=== PATIENT | female | born 1935 | race Caucasian/White ===

== ENCOUNTER 2019-05-07 00:21 | Day surgery (SDC) | payer MEDICARE, OTHER, SELFPAY ==
[2019-04-23 09:57] VITALS: BMI 22.6
--- NOTE | 2019-05-06 10:05 | WPDANESEPP ---
Anes - Eval Pre Procedure Procedure: Operation Date: 05/07/19 08:00 Proposed Procedures p Cystoscopy, Bladder Biopsy, Steroid Injection - Hector Clarisse Suarez MD Date/Time: 05/06/19 10:05 Pre Op Diagnosis: Hunner's Ulcer Patient Data Age: 84 Gender: F Height: 1.68 m Weight: 63.63 kg Allergies Allergy/AdvReac Type Severity Reaction Status Date / Time codeine Allergy Intermediate STOMACH Verified 04/17/18 14:28 CRAMPING,NAUSEA AND VOMITING tramadol Allergy Intermediate Nausea and Verified 04/17/18 14:28 Vomiting Sulfa (Sulfonamide AdvReac Mild STOMACH Verified 04/17/18 14:28 Antibiotics) CRAMPS Home Medications Medication Instructions Recorded Confirmed Type albuterol sulfate [ProAir HFA] 1 inh INHALATION QID PRN 04/23/19 04/23/19 History alprazolam 0.25 mg PO DAILY PRN 04/23/19 04/23/19 History aspirin 81 mg PO DAILY 04/23/19 04/23/19 History atenolol 50 mg PO DAILY 04/23/19 04/23/19 History cholecalciferol (vitamin D3) 2,000 unit PO DAILY 04/23/19 04/23/19 History conjugated estrogens [Premarin] 0.625 mg VAGINAL DAILY 04/23/19 04/23/19 History loratadine 10 mg PO DAILY 04/23/19 04/23/19 History losartan 50 mg PO DAILY 04/23/19 04/23/19 History multivitamin 1 cap PO DAILY 04/23/19 04/23/19 History olopatadine [Patanol] 1 drp OPHTHALMIC (EYE) BID 04/23/19 04/23/19 History tiotropium bromide [Spiriva with 1 cap INHALATION DAILY 04/23/19 04/23/19 History HandiHaler] zoledronic owes-raiygvrq-kqmut 5 mg IV ONCE 04/23/19 04/23/19 History [Reclast] Patient hx anesthesia problems: none Family hx anesthesia problems: none PMFSH Past Medical History Medical History Anxiety Asthma daily inhaler use HTN (hypertension) Osteoarthritis Surgical History Surgical History History of appendectomy History of carotid endarterectomy right carotid endarterectomy History of total hip arthroplasty right total hip arthroplasty Exam Day of Procedure 05/06/19 10:05
[2019-05-07 07:00] VITALS: BP 184/66; PULSE 58; RESP 18; TEMP 36.7; O2SAT 97
[2019-05-07] MEDS: LACTATED RINGERS 1,000 ML 30 ML IV CONT (07:00)
--- NOTE | 2019-05-07 07:18 | WPDHPUPDATE1 ---
History and Physical Update Update Date/Time: 05/07/19 07:18 History and Physical has been reviewed, including an updated exam of the patient. There are NO changes in the patient's condition. Risks, benefits, and alternatives have been discussed and questions answered. Patient agrees to proceed with procedure.
--- NOTE | 2019-05-07 07:19 | WPDHPUPDATE1 ---
History and Physical Update Update Date/Time: 05/07/19 07:19 History and Physical has been reviewed, including an updated exam of the patient. There are NO changes in the patient's condition. Risks, benefits, and alternatives have been discussed and questions answered. Patient agrees to proceed with procedure. cysto, bladder bx, steroid injection
[2019-05-07 07:32] VITALS: BP 152/76; PULSE 58; O2SAT 98
--- NOTE | 2019-05-07 07:40 | P.PNAN_ITS ---
Anes - Initial Pre Proc Eval Procedure: Operation Date: 05/07/19 08:00 Proposed Procedures p Cystoscopy, Bladder Biopsy, Steroid Injection - Hector Suarez MD Date/Time: 05/07/19 07:40 Surgeon: Hector Suarez MD Pre Op Diagnosis: Hunner's Ulcer Patient Data Age: 84 Gender: F Height: 5 ft 6 in Weight: 62.5 kg Last Vital Signs Temp 98.0 F 05/07/19 07:00 Pulse 58 L 05/07/19 07:32 Resp 18 05/07/19 07:00 BP 152/76 H 05/07/19 07:32 Pulse Ox 98 05/07/19 07:32 Allergies Allergy/AdvReac Type Severity Reaction Status Date / Time codeine Allergy Intermediate STOMACH Verified 05/07/19 07:11 CRAMPING,NAUSEA AND VOMITING tramadol Allergy Intermediate Nausea and Verified 05/07/19 07:11 Vomiting Sulfa (Sulfonamide AdvReac Mild STOMACH Verified 05/07/19 07:11 Antibiotics) CRAMPS Home Medications Medication Instructions Recorded Confirmed Type Premarin 0.625 mg VAGINAL DAILY 04/23/19 05/07/19 History Spiriva with HandiHaler 1 cap INHALATION DAILY 04/23/19 05/07/19 History albuterol sulfate [ProAir HFA] 1 inh INHALATION QID PRN 04/23/19 05/07/19 History alprazolam 0.25 mg PO DAILY PRN 04/23/19 05/07/19 History aspirin 81 mg PO DAILY 04/23/19 05/07/19 History atenolol 50 mg PO DAILY 04/23/19 05/07/19 History cholecalciferol (vitamin D3) 2,000 unit PO DAILY 04/23/19 05/07/19 History loratadine 10 mg PO DAILY 04/23/19 05/07/19 History losartan 50 mg PO DAILY 04/23/19 05/07/19 History multivitamin 1 cap PO DAILY 04/23/19 05/07/19 History olopatadine [Patanol] 1 drp OPHTHALMIC (EYE) BID 04/23/19 05/07/19 History zoledronic rcjf-yxvokbuc-yzuth 5 mg IV ONCE 04/23/19 05/07/19 History [Reclast] tramadol 50 mg PO Q6H PRN #10 tablet 05/07/19 Rx Patient hx anesthesia problems: none Family hx anesthesia problems: none PMFSH Past Medical History Medical History Anxiety Asthma daily inhaler use HTN (hypertension) Osteoarthritis Surgical History Surgical History History of appendectomy History of carotid endarterectomy right carotid endarterectomy History of total hip arthroplasty right total hip arthroplasty Anes - Eval Final PreProcedure Day of Procedure 05/07/19 07:40 Patient weight: normal Heart: regular rate and rhythm Lungs: clear to auscultation Airway: Mallampati scale class II Neurological: alert and oriented Last oral intake: >/= 8 hours ASA classification: III Emergent: no Anesthetic plan: proceed Anesthesia type and monitoring: general LMA and standard monitoring Informed Consent: The patient's anesthetic plan and its attendant risks and b enefits were discussed with the patient/family/POA. Questions were solicited and answers provided to the satisfaction of the patient/family/POA.
[2019-05-07] MEDS: ceFAZolin 2 GM/D5W 50 ML 2 GM/50 ML BAG IVPB (08:06)
[2019-05-07] MEDS: LIDOCAINE HCL 2% GEL UROJET 10 ML PKG MUCOUS MEM (08:18)
[2019-05-07] MEDS: TRIAMCINOLONE ACET INJ 40 MG/ML VIAL 200 MG IM (08:19)
[2019-05-07 08:35] VITALS: BP 113/49; PULSE 58; RESP 12; O2SAT 92
[2019-05-07 09:05] VITALS: BP 152/68; PULSE 52; RESP 12; O2SAT 95
[2019-05-07 09:25] VITALS: BP 165/66; PULSE 51; RESP 12; O2SAT 95
--- NOTE | 2019-05-07 09:44 | PM.PROC ---
Procedure Note - Detailed Date of procedure: 05/07/19 Pre-op diagnosis: Hunner's Ulcer Hunner's ulcer Post-op diagnosis: same Procedure performed: Cystoscopy with bladder biopsy and injection of steroid Description of procedure: After anesthesia was induced the patient was correctly identified and informed consent was obtained. They are placed in the dorsal lithotomy position. There prepped and draped in a sterile fashion. A time-out performed. I performed cystoscopy. There were areas of Hunner's ulceration inside the bladder. This was biopsied in generously fulgurated. I then injected Kenalog at a dose of 40 milligrams/mL. I injected 5 cc total. There was minimal bleeding from the injection sites. The bladder was examined under low insufflation pressures and there was no active bleeding. The bladder was drained. The awakened and transferred to the PACU in stable condition. Implants: None Anesthesia: MAC Surgeon: Hector Suarez MD Drains: No Packing: No Pathology: yes (Bladder biopsy) Complications: No immediate complications Condition: stable Disposition: PACU
== END 2019-05-07 09:32 | disposition home or self-care (01) ==
PROVIDERS: Visit Provider Urology
PROC: 0TBB8ZX Excision of Bladder, Via Natural or Artificial Opening Endoscopic, Diagnostic (ICD-10-PCS; CPT 52204; principal; 2019-05-07 08:00)
DX: N30.10 Interstitial cystitis (chronic) without hematuria (principal); J45.909 Unspecified asthma, uncomplicated; I10 Essential (primary) hypertension; F41.9 Anxiety disorder, unspecified; M19.90 Unspecified osteoarthritis, unspecified site; Z79.82 Long term (current) use of aspirin
CPT/HCPCS: 52204; 52283; 88305; A9270; J0690; J2704; J3010; J3301; J7120

== ENCOUNTER 2020-12-17 08:50 | Outpatient (CLI) | payer MEDICARE, OTHER, SELFPAY ==
--- NOTE | ~2020-12-17 | CT_ITS ---
EXAMINATION: CT brain wo con EXAM DATE: 12/17/2020 10:02 INDICATION: Confusion, disorientation. TECHNIQUE: Spiral CT of the head was performed without contrast. Axial, coronal and sagittal images were reviewed. The dose-length product (DLP) for this examination was 605.33 mGy-cm. The exposure w as tailored according to patient size, and iterative reconstruction (ASIR) was used as additional dos e reduction technique. There is no prior study for comparison. FINDINGS: There is no acute intraparenchymal hemorrhage. No evidence of intraparenchymal brain mass lesion. No evidence of acute infarction. Please note that initial head CT has limited sensitivity f or small or acute infarctions. There is moderate periventricular and subcortical hypodensity, nonspec ific but probably related to small vessel ischemic disease. There is moderate to severe prominence of the sulci and ventricles related to cerebral atrophy. 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 There are no extra-axial collections. There is no mass effect or midline shift. The orbits a re unremarkable. Soft tissue is unremarkable. The visualized sinuses and mastoid air cells are well aerated. IMPRESSION: 1. No acute intracranial findings. 2. Chronic age related findings. Reviewed, dictated and finalized at location B.
== END 2020-12-17 08:51 | disposition home or self-care (01) ==
PROVIDERS: PCP Family Medicine; Visit Provider Family Medicine
DX: R41.0 Disorientation, unspecified (principal)
CPT/HCPCS: 70450

== ENCOUNTER 2021-05-01 12:34 | Inpatient (IN) | payer MEDICARE, OTHER, SELFPAY ==
[2021-05-01 12:36] VITALS: BP 106/64; PULSE 91; RESP 16; TEMP 36.7; O2SAT 95
[2021-05-01 15:56] LABS: Basophils Percent Auto 0.5 % (0.2-1.2); Eosinophils Absolute Auto 0.1 K/mm3 (0-0.3); Eosinophils Percent Auto 1.2 % (0-4.4); Hematocrit 41.6 % (37.0-47.0); Hemoglobin 13.4 g/dL (12.0-15.0); Immature Granulocyte Absolute 0.02 K/mm3 (0.00-0.031); Immature Granulocyte Percent A 0.3 % (0-0.5); Lymphocytes Absolute Auto 1.84 K/mm3 (0.9-3.2); Lymphocytes Percent Auto 27.9 % (18.3-44.2); Mean Corpuscular HGB Conc 32.2 g/dl (32-36); Mean Corpuscular Hemoglobin 28.9 pg (26-34); Mean Corpuscular Volume 89.7 fl (80-100); Mean Platelet Volume 10.2 fl (7.4-10.4); Monocytes Absolute Auto 0.5 K/mm3 (0.1-0.6); Monocytes Percent Auto 8.2 % (2.6-8.5); Neutrophils Absolute Auto 4.1 K/mm3 (1.3-6.7); Neutrophils Percent Auto 61.9 % (45.5-73.1); Platelet Count Result 227 k/mm3 (150-375); Red Blood Count 4.64 M/mm3 (4.2-5.4); Red Cell Distribution Width 13.6 % (11.5-14.5); White Blood Count 6.6 K/mm3 (4.5-10.0)
[2021-05-01 16:05] LABS: Add Urine Microscopic? YES; Appearance Urine Clear (Clear); Bilirubin Urine Negative (Negative); Color Urine Yellow (Yellow); Glucose Urine UA Negative (Negative); Ketones Urine Negative (Negative); Leukocyte Esterase Ur 3+ LEU/UL (Negative); Nitrate Urine Negative (Negative); Protein Urine 1+ mg/dL (Negative); Specific Grav Ur 1.012 (1.001-1.035); Squamous Epithelial Cell Urine Rare /hpf (Few); Urobilinogen Urine Negative mg/dL (<2.0); WBC Urine >75 /hpf
[2021-05-01 16:06] LABS: Blood Urine Negative (Negative)
[2021-05-01 16:07] LABS: Alanine Aminotransferase 17 U/L (4-35); Albumin Level 3.4 g/dL (3.5-5.1); Alkaline Phosphatase 82 U/L (38-126); Anion Gap 5 mmol/L (8-16); Aspartate Amino Transferase 31 U/L (14-36); Bilirubin,Total 0.5 mg/dL (0.2-1.3); Blood Urea Nitrogen 16 mg/dL (7-17); Calcium 10.2 mg/dL (8.4-10.2); Carbon Dioxide 31 mmol/L (22-30); Chloride 100 mmol/L (98-107); Estimated Glomerular Filt Rate 59; Glucose 110 mg/dL (65-110); Potassium 3.8 mmol/L (3.4-5.0); Sodium 136 mmol/L (137-145)
--- NOTE | 2021-05-01 16:48 | ED.FEMALEGU ---
HPI - Female Genitourinary General Chief complaint: Urogenital-Female <Genesis Morales PA-C - Last Filed: 05/01/21 17:31> Stated complaint: uti <Genesis Morales PA-C - Last Filed: 05/01/21 17:31> Time Seen by Provider: 05/01/21 15:32 <Genesis Morales PA-C - Last Filed: 05/01/21 17:31> Source: patient <NICOLAS Thomas Last Filed: 05/01/21 17:31> Mode of arrival: EMS <NICOLAS Thomas Last Filed: 05/01/21 17:31> Limitations: no limitations <NCIOLAS Thomas Last Filed: 05/01/21 17:31> History of Present Illness HPI Narrative: This is a 86 year old female that presents to the ER for UTI. Had UA performed at nursing facility which showed a UTI that was resistant to all oral antibiotics. Sent to the ER for IV antibiotics. She has no complaints currently. Denies fever, flank pain, vomiting, or hematuria. <Genesis Morales PA-C - Last Filed: 05/01/21 17:31> Related Data Home medications: Home Medications Medication Instructions Recorded Confirmed Spiriva with HandiHaler 1 cap INHALATION DAILY 04/23/19 05/07/19 albuterol sulfate [ProAir HFA] 1 inh INHALATION QID PRN 04/23/19 05/07/19 aspirin 81 mg PO DAILY 04/23/19 05/07/19 cholecalciferol (vitamin D3) 2,000 unit PO DAILY 04/23/19 05/07/19 multivitamin 1 cap PO DAILY 04/23/19 05/07/19 olopatadine [Patanol] 1 drp OPHTHALMIC (EYE) BID 04/23/19 05/07/19 zoledronic jhws-bkaeqjyv-exzoc 5 mg IV ONCE 04/23/19 05/07/19 [Reclast] atorvastatin 40 mg PO HS 05/01/21 bisacodyl [Gentle Laxative 5 mg PO HS 05/01/21 (bisacodyl)] clopidogrel 75 mg PO DAILY 05/01/21 ferrous sulfate 143 mg PO TID 05/01/21 folic acid 1 mg PO DAILY 05/01/21 magnesium oxide 400 mg PO DAILY 05/01/21 nitrofurantoin 50 mg PO DAILY 05/01/21 05/01/21 sertraline 25 mg PO DAILY 05/01/21 <Genesis Morales PA-C - Last Filed: 05/01/21 17:31> Allergies/Adverse reactions: Allergies Allergy/AdvReac Type Severity Reaction Status Date / Time codeine Allergy Intermediate STOMACH Verified 05/07/19 07:11 CRAMPING,NAUSEA AND VOMITING tramadol Allergy Intermediate Nausea and Verified 05/07/19 07:11 Vomiting ciprofloxacin Allergy Unknown Verified 05/01/21 16:22 meloxicam Allergy Unknown Verified 05/01/21 16:22 Sulfa (Sulfonamide AdvReac Mild STOMACH Verified 05/07/19 07:11 Antibiotics) CRAMPS <Genesis Morales PA-C - Last Filed: 05/01/21 17:31> Review of Systems Review of Systems: CONSTITUTIONAL: Denies fever GASTROINTESTINAL: Denies abdominal pain, nausea, vomiting GENITOURINARY: Denies dysuria or hematuria. <Genesis Morales PA-C - Last Filed: 05/01/21 17:31> All systems reviewed & are unremarkable except as noted in HPI and below <Genesis Morales PA-C - Last Filed: 05/01/21 17:31> [facility] Past Medical History Medical History: Medical History (Updated 05/01/21 @ 17:23 by Genesis Morales PA-C) Anxiety Asthma daily inhaler use HTN (hypertension) Osteoarthritis <Genesis Morales PA-C - Last Filed: 05/01/21 17:31> Surgical History Surgical History: Surgical History History of appendectomy History of carotid endarterectomy right carotid endarterectomy History of total hip arthroplasty right total hip arthroplasty <Genesis Morales PA-C - Last Filed: 05/01/21 17:31> Social History Social History: Social History (Updated 05/01/21 @ 16:53 by Genesis Morales PA-C) Smoking status: Never smoker <Genesis Morales PA-C - Last Filed: 05/01/21 17:31> Exam Narrative: GENERAL: Well-appearing, well-nourished, and in no acute distress. HEAD: Normocephalic, atraumatic. EYES: EOMI. CHEST: Clear to auscultation. No respiratory distress. No wheezes rales or rhonchi HEART: Regular rate and rhythm. No murmur heard. Normal peripheral pulses. ABDOMEN: Soft, nontender, nondistended, normal active bowel sounds. No CVA tenderness
--- NOTE | 2021-05-01 17:31 | PC.NURSE ---
community living coach ordered room tray @ [phone]
[2021-05-01 17:37] VITALS: BP 150/78; PULSE 74; RESP 20; O2SAT 94
[2021-05-01 18:21] VITALS: BP 152/61; PULSE 75; RESP 16; O2SAT 96
--- NOTE | 2021-05-01 19:29 | PM.IMHP ---
H&P: HPI History of Present Illness Date/Time: 05/01/21 19:29 this is an 86-year-old female patient who came from the nursing facility which showed a urinary tract infection of E coli that was resistant to all oral antibiotics. The patient was sent to the emergency room for IV antibiotics. The urine culture and sensitivity was very difficult to read however it looks like the that she Sade is sensitive to vancomycin. Patient tonight any fever chills or flank pain. The patient currently has a depends on its stated that she feels that she has had an accident in her depends. She feels that she is not able to control her urine. The patient also tells me that she has been wheezing and that she was getting nebulizer treatments and her nebulizer machine broke and she is still coughing and wheezing Sodium is 136. Urine in his positive for UTI. The patient was started on vancomycin. The patient is being admitted for observation status and then was changed to inpatient status on the deep surface of 05/01/2021. Chief Complaint: Urinary tract infection Review of Systems Review of Systems: The patient is hard of hearing and was a poor historian. ROS unobtainable: Yes unobtainable due to mental status PMFSH Past Medical History Medical History (Updated 05/01/21 @ 23:47 by Haydee Montero NP) Anxiety Asthma daily inhaler use HTN (hypertension) Hyperlipidemia Osteoarthritis Surgical History Surgical History History of appendectomy History of carotid endarterectomy right carotid endarterectomy History of total hip arthroplasty right total hip arthroplasty Family History Family History Father Emphysema lung Social History Social History (Updated 05/01/21 @ 23:40 by Haydee Montero NP) Social History: She is from [facility]. she has 3 chidren. she is . 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 lifelong non smoker . she does not use any alcohol marijuana or illicit drugs. code status full code Smoking status: Never smoker Alcohol intake: never Substance use: never Substance use type: does not use Spiritual care concerns: No Meds Home Medications and Allergies Home Medications Medication Instructions Recorded Confirmed Type Spiriva with HandiHaler 1 cap INHALATION DAILY 04/23/19 05/07/19 History albuterol sulfate [ProAir HFA] 1 inh INHALATION QID PRN 04/23/19 05/07/19 History aspirin 81 mg PO DAILY 04/23/19 05/07/19 History cholecalciferol (vitamin D3) 2,000 unit PO DAILY 04/23/19 05/07/19 History multivitamin 1 cap PO DAILY 04/23/19 05/07/19 History olopatadine [Patanol] 1 drp OPHTHALMIC (EYE) BID 04/23/19 05/07/19 History atorvastatin 40 mg PO HS 05/01/21 History bisacodyl [Gentle Laxative 5 mg PO HS 05/01/21 History (bisacodyl)] clopidogrel 75 mg PO DAILY 05/01/21 History ferrous sulfate 143 mg PO TID 05/01/21 History folic acid 1 mg PO DAILY 05/01/21 History magnesium oxide 400 mg PO DAILY 05/01/21 History nitrofurantoin 50 mg PO DAILY 05/01/21 05/01/21 History sertraline 25 mg PO DAILY 05/01/21 History Allergies Allergy/AdvReac Type Severity Reaction Status Date / Time codeine Allergy Intermediate STOMACH Verified 05/07/19 07:11 CRAMPING,NAUSEA AND VOMITING tramadol Allergy Intermediate Nausea and Verified 05/07/19 07:11 Vomiting ciprofloxacin Allergy Unknown Verified 05/01/21 16:22 meloxicam Allergy Unknown Verified 05/01/21 16:22 Sulfa (Sulfonamide AdvReac Mild STOMACH Verified 05/07/19 07:11 Antibiotics) CRAMPS Vital Signs Vital Signs - 24 hr 05/01/21 12:36 05/01/21 17:37 05/01/21 18:21 Temperature 36.7 C Pulse Rate 91 74 75 Respiratory Rate 16 20 16 Blood Pressure 106/64 150/78 H 152/61 H Pulse Oximetry 95 94 96 Exam Const: General: cooperati
[2021-05-01 21:31] VITALS: BP 135/102; PULSE 72; RESP 18; O2SAT 97
--- NOTE | 2021-05-01 23:00 | ADMGEN ---
This patient, Gracia Goodson, was admitted to 2 Medical Room 241-01. Patient/family oriented to hospital policies and general routines including ID bracelet, bed and alarms, visiting hours, pain management, procedures, bathroom and other care routines, personal items, smoking policy, room service/diet, and visiting hours. Information on how to activate the Rapid Response Team has been discussed. Patient/Family are encouraged to report perceived risks to care and to ask questions if they do not understand what they are told or what they should do.
[2021-05-01 23:27] VITALS: BP 123/61; PULSE 71; RESP 20; TEMP 35.7; O2SAT 97; BMI 15.7
[2021-05-02] MEDS: ATORVASTATIN 40 MG TABLET PO ×2 (01:11→20:01)
[2021-05-02 03:28] VITALS: BP 137/58; PULSE 80; RESP 18; TEMP 36; O2SAT 97
[2021-05-02 05:46] LABS: Basophils Percent Auto 0.4 % (0.2-1.2); Eosinophils Absolute Auto 0.1 K/mm3 (0-0.3); Eosinophils Percent Auto 1.6 % (0-4.4); Hematocrit 39.5 % (37.0-47.0); Hemoglobin 12.6 g/dL (12.0-15.0); Immature Granulocyte Absolute 0.02 K/mm3 (0.00-0.031); Immature Granulocyte Percent A 0.3 % (0-0.5); Lymphocytes Absolute Auto 1.73 K/mm3 (0.9-3.2); Lymphocytes Percent Auto 24.5 % (18.3-44.2); Mean Corpuscular HGB Conc 31.9 g/dl (32-36); Mean Corpuscular Hemoglobin 28.3 pg (26-34); Mean Corpuscular Volume 88.8 fl (80-100); Mean Platelet Volume 10.2 fl (7.4-10.4); Monocytes Absolute Auto 0.7 K/mm3 (0.1-0.6); Monocytes Percent Auto 9.4 % (2.6-8.5); Neutrophils Absolute Auto 4.5 K/mm3 (1.3-6.7); Neutrophils Percent Auto 63.8 % (45.5-73.1); Platelet Count Result 207 k/mm3 (150-375); Red Blood Count 4.45 M/mm3 (4.2-5.4); Red Cell Distribution Width 13.3 % (11.5-14.5); White Blood Count 7.1 K/mm3 (4.5-10.0)
[2021-05-02 05:54] LABS: Lactic Acid Reflex 0.5 mmol/L (0.7-2.1)
[2021-05-02 05:59] LABS: CRP 0.7 mg/dL (<1.0); Lactate Dehydrogenase 347 U/L (313-618); Lipase 42 U/L (23-300); Magnesium 1.9 mg/dL (1.6-2.3)
[2021-05-02] MEDS: MAGNESIUM OXIDE 400 MG TABLET PO (08:43)
[2021-05-02] MEDS: FOLIC ACID 1 MG TABLET PO (08:43)
[2021-05-02] MEDS: FERROUS SULFATE DRIED 142 MG TABCR 45 MG PO (08:43)
[2021-05-02] MEDS: CHOLECALCIFEROL 1,000 UNITS TABLET 2000 UNITS PO (08:43)
[2021-05-02] MEDS: NITROFURANTOIN MACROCRYSTALS 50 MG CAP PO (08:43)
[2021-05-02] MEDS: SERTRALINE HCL 25 MG TABLET PO (08:43)
[2021-05-02] MEDS: ASPIRIN 81 MG ENTERIC TABLET PO (08:43)
[2021-05-02] MEDS: MULTIVITAMINS THERAPEUTIC TAB (*BKC) 1 TABLET PO (08:43)
[2021-05-02] MEDS: OLOPATADINE 0.1% OPHTH SOLN 5 ML BTL 1 DROP EACH EYE ×2 (08:45→16:54)
[2021-05-02] MEDS: CLOPIDOGREL BISULFATE 75 MG TABLET PO (08:45)
--- NOTE | 2021-05-02 10:18 | PM.IMPN ---
Progress Note: A&P Assessment and Plan (1) Urinary tract infection: Qualifiers: Hematuria presence: without hematuria Urinary tract infection type: acute cystitis Qualified Code(s): N30.00 - Acute cystitis without hematuria Code(s): N39.0 - Urinary tract infection, site not specified Status: Acute Assessment and Plan: Ecoli + Follow UC and BC Continue with vanc for now (2) HTN (hypertension): Code(s): I10 - Essential (primary) hypertension Status: Chronic Assessment and Plan: Continue home medications Monitor (3) Asthma: Code(s): J45.909 - Unspecified asthma, uncomplicated Status: Chronic Assessment and Plan: No acute exacerbation Continue with home inhalers (4) Anxiety: Code(s): F41.9 - Anxiety disorder, unspecified Status: Chronic Assessment and Plan: Continue home medications (5) Hyperlipidemia: Code(s): E78.5 - Hyperlipidemia, unspecified Status: Chronic Assessment and Plan: Continue atorvastatin Subjective Date/time seen: 05/02/21 10:18 Interval history: Pt seen and evaluated; labs, diagnostic results reviewed Review of Systems Review of Systems: All systems reviewed & are unremarkable except as noted in HPI and below Exam Const: General: no acute distress, alert and awake Orientation/consciousness: patient oriented x3 HENMT: Head: normocephalic and atraumatic Ears: hearing grossly normal bilaterally and external ears normal Face and sinus: face symmetric Mouth: Yes Normal oral and palatal mucosa present Eyes: EOM: EOMs intact bilaterally Neck: Neck: full ROM, trachea midline and no JVD Resp: Effort & Inspection: normal respiratory effort Auscultation: clear to auscultation bilaterally Cardio: Jugular venous distension: no JVD Rate: regular rate Rhythm: regular rhythm Heart sounds: S1 normal heart sound present and S2 normal heart sound present GI: Inspection: normal to inspection GI Palp: Yes Soft to palpation Percussion: Yes normal to percussion Auscultation: normal bowel sounds : General: Yes no CVA tenderness Skin: General skin exam: normal color Rashes: no rashes Neuro: General: patient oriented x3 and no focal motor deficits Cranial nerves: Yes Equal, round and reactive pupils present Speech: normal speech Extrem: General: full ROM and no clubbing, cyanosis or edema Psych: Appearance: grossly normal Affect: normal affect Judgement: Good judgement present (Psych) Objective Data Vital Signs Vital Signs: Vital Signs - 24 hr 05/01/21 12:36 05/01/21 17:37 05/01/21 18:21 Temperature 36.7 C Pulse Rate 91 74 75 Respiratory Rate 16 20 16 Blood Pressure 106/64 150/78 H 152/61 H Pulse Oximetry 95 94 96 05/01/21 21:31 05/01/21 23:27 05/02/21 03:28 Temperature 35.7 C L 36.0 C L Pulse Rate 72 71 80 Respiratory Rate 18 20 18 Blood Pressure 135/102 H 123/61 137/58 L Pulse Oximetry 97 97 97 Intake/Output Intake/Output: Intake & Output 04/29/21 04/30/21 05/01/21 05/02/21 23:59 23:59 23:59 23:59 Intake Total 250 250 Balance 250 250 Meds/Results Medications: Active Medications Generic Name Dose Route Start Last Admin Trade Name Freq PRN Reason Stop Dose Admin Albuterol 2 puff 05/01/21 23:29 Albuterol Sulfate (*Sp) Aerosol 1 Puff INHALATION Q6HRT PRN Shortness Of Breath Aspirin 81 mg 05/02/21 09:00 05/02/21 08:43 Aspirin 81 Mg Enteric Tablet PO 81 mg DAILY FRANCK Administration Atorvastatin Calcium 40 mg 05/02/21 00:20 05/02/21 01:11 Atorvastatin 40 Mg Tablet PO 40 mg HS FRANCK Administration Bisacodyl 5 mg 05/01/21 23:49 Bisacodyl 5 Mg Tablet Ec PO HS PRN Constipation Clopidogrel Bisulfate 75 mg 05/02/21 09:00 05/02/21 08:45 Clopidogrel Bisulfate 75 Mg Tablet PO 75 mg DAILY FRANCK Administration Ferrous Sulfate 45 mg 05/02/21 08:00 05/02/21 08:43 Ferrous Sulfate
[2021-05-02 14:00] VITALS: BP 137/62; PULSE 74; RESP 12; TEMP 36.4; O2SAT 95
[2021-05-02] MEDS: UMECLIDINIUM BROMIDE 62.5 MCG ELLIPTA 1 PUFF INHALATION (17:46)
[2021-05-02 19:49] VITALS: BP 129/52; PULSE 81; RESP 16; TEMP 35.9; O2SAT 95
[2021-05-03 03:16] VITALS: BP 112/61; PULSE 86; RESP 17; TEMP 36; O2SAT 93
[2021-05-03 06:04] LABS: Hematocrit 38.8 % (37.0-47.0); Hemoglobin 12.4 g/dL (12.0-15.0); Mean Corpuscular Hemoglobin 28.6 pg (26-34); Mean Corpuscular Volume 89.6 fl (80-100); Mean Platelet Volume 10.5 fl (7.4-10.4); Platelet Count Result 229 k/mm3 (150-375); Red Blood Count 4.33 M/mm3 (4.2-5.4); Red Cell Distribution Width 13.4 % (11.5-14.5); White Blood Count 6.4 K/mm3 (4.5-10.0)
[2021-05-03 06:23] LABS: Anion Gap 0 mmol/L (8-16); Blood Urea Nitrogen 12 mg/dL (7-17); Calcium 9.3 mg/dL (8.4-10.2); Carbon Dioxide 29 mmol/L (22-30); Chloride 106 mmol/L (98-107); Estimated CRCL calculation 31 ml/min; Estimated Glomerular Filt Rate > 60; Glucose 79 mg/dL (65-110); Potassium 3.9 mmol/L (3.4-5.0); Sodium 135 mmol/L (137-145)
[2021-05-03] MEDS: SERTRALINE HCL 25 MG TABLET PO (08:58)
[2021-05-03] MEDS: CHOLECALCIFEROL 1,000 UNITS TABLET 2000 UNITS PO (08:58)
[2021-05-03] MEDS: MULTIVITAMINS THERAPEUTIC TAB (*BKC) 1 TABLET PO (08:58)
[2021-05-03] MEDS: MAGNESIUM OXIDE 400 MG TABLET PO (08:58)
[2021-05-03] MEDS: FERROUS SULFATE DRIED 142 MG TABCR 45 MG PO (08:58)
[2021-05-03] MEDS: CLOPIDOGREL BISULFATE 75 MG TABLET PO (08:58)
[2021-05-03] MEDS: ASPIRIN 81 MG ENTERIC TABLET PO (08:58)
[2021-05-03] MEDS: OLOPATADINE 0.1% OPHTH SOLN 5 ML BTL 1 DROP EACH EYE ×2 (08:59→17:24)
[2021-05-03] MEDS: FOLIC ACID 1 MG TABLET PO (08:59)
[2021-05-03] MEDS: UMECLIDINIUM BROMIDE 62.5 MCG ELLIPTA 1 PUFF INHALATION (10:00)
--- NOTE | 2021-05-03 11:30 | PM.IMPN ---
Progress Note: A&P Assessment and Plan (1) Urinary tract infection: Qualifiers: Hematuria presence: without hematuria Urinary tract infection type: acute cystitis Qualified Code(s): N30.00 - Acute cystitis without hematuria Code(s): N39.0 - Urinary tract infection, site not specified Status: Acute Assessment and Plan: UC-->Ecoli + ESBL BC NGTD D/c vanc Ertapenem (2) HTN (hypertension): Code(s): I10 - Essential (primary) hypertension Status: Chronic Assessment and Plan: Stable Continue home medications Monitor (3) Asthma: Code(s): J45.909 - Unspecified asthma, uncomplicated Status: Chronic Assessment and Plan: No acute exacerbation Continue with home inhalers (4) Anxiety: Code(s): F41.9 - Anxiety disorder, unspecified Status: Chronic Assessment and Plan: Continue home medications (5) Hyperlipidemia: Code(s): E78.5 - Hyperlipidemia, unspecified Status: Chronic Assessment and Plan: Continue atorvastatin Subjective Date/time seen: 05/03/21 11:30 Interval history: 05/02 Pt seen and evaluated; labs, diagnostic results reviewed 05/03 Pt seen and evaluated; no acute events overnight; UC grew Ecoli ESBL Review of Systems Review of Systems: All systems reviewed & are unremarkable except as noted in HPI and below Exam Const: General: no acute distress, alert and awake Orientation/consciousness: patient oriented x3 HENMT: Head: normocephalic and atraumatic Ears: hearing grossly normal bilaterally and external ears normal Face and sinus: face symmetric Mouth: Yes Normal oral and palatal mucosa present Eyes: EOM: EOMs intact bilaterally Neck: Neck: full ROM, trachea midline and no JVD Chest: Chest palpation & inspection: normal inspection of the chest Resp: Effort & Inspection: normal respiratory effort Auscultation: clear to auscultation bilaterally Cardio: Jugular venous distension: no JVD Rate: regular rate Rhythm: regular rhythm Heart sounds: S1 normal heart sound present and S2 normal heart sound present GI: Inspection: normal to inspection Auscultation: normal bowel sounds : General: Yes no CVA tenderness Back/Spine/Pelvis: Back: no CVA tenderness Skin: General skin exam: normal color Rashes: no rashes Neuro: General: patient oriented x3 and no focal motor deficits Speech: normal speech Extrem: General: full ROM and no clubbing, cyanosis or edema Psych: Appearance: grossly normal Affect: normal affect Judgement: Good judgement present (Psych) Objective Data Vital Signs Vital Signs: Vital Signs - 24 hr 05/02/21 14:00 05/02/21 19:49 05/03/21 03:16 Temperature 36.4 C 35.9 C L 36.0 C L Pulse Rate 74 81 86 Respiratory Rate 12 16 17 Blood Pressure 137/62 129/52 L 112/61 Pulse Oximetry 95 95 93 Intake/Output Intake/Output: Intake & Output 04/30/21 05/01/21 05/02/21 05/03/21 23:59 23:59 23:59 23:59 Intake Total 250 510 540 Output Total 100 Balance 250 410 540 Meds/Results Medications: Active Medications Generic Name Dose Route Start Last Admin Trade Name Freq PRN Reason Stop Dose Admin Albuterol 2 puff 05/01/21 23:29 Albuterol Sulfate (*Sp) Aerosol 1 Puff INHALATION Q6HRT PRN Shortness Of Breath Aspirin 81 mg 05/02/21 09:00 05/03/21 08:58 Aspirin 81 Mg Enteric Tablet PO 81 mg DAILY FRANCK Administration Atorvastatin Calcium 40 mg 05/02/21 00:20 05/02/21 20:01 Atorvastatin 40 Mg Tablet PO 40 mg HS FRANCK Administration Bisacodyl 5 mg 05/01/21 23:49 Bisacodyl 5 Mg Tablet Ec PO HS PRN Constipation Clopidogrel Bisulfate 75 mg 05/02/21 09:00 05/03/21 08:58 Clopidogrel Bisulfate 75 Mg Tablet PO 75 mg DAILY FRANCK Administration Ferrous Sulfate 45 mg 05/02/21 08:00 05/03/21 08:58 Ferrous Sulfate Dried 142 Mg Tabcr PO 45 mg DAILY@0800 FRANCK Administration Folic Acid 1 mg
[2021-05-03] MEDS: ERTAPENEM SODIUM 0.5 GM in SODIUM CHLORIDE 0.9% IV 50 ML IVPB (12:49)
[2021-05-03 15:01] VITALS: BP 117/66; PULSE 79; RESP 16; TEMP 36.8; O2SAT 95
[2021-05-03 19:07] VITALS: BP 118/65; PULSE 81; RESP 17; TEMP 36.6; O2SAT 94
[2021-05-03] MEDS: ATORVASTATIN 40 MG TABLET PO (20:37)
[2021-05-04 03:27] VITALS: BP 132/76; PULSE 87; RESP 18; TEMP 37.1; O2SAT 93
[2021-05-04 06:53] LABS: Hematocrit 37.8 % (37.0-47.0); Hemoglobin 12.2 g/dL (12.0-15.0); Mean Corpuscular HGB Conc 32.3 g/dl (32-36); Mean Corpuscular Hemoglobin 29.1 pg (26-34); Mean Corpuscular Volume 90.2 fl (80-100); Mean Platelet Volume 10.3 fl (7.4-10.4); Platelet Count Result 223 k/mm3 (150-375); Red Blood Count 4.19 M/mm3 (4.2-5.4); Red Cell Distribution Width 13.6 % (11.5-14.5); White Blood Count 6.6 K/mm3 (4.5-10.0)
[2021-05-04 07:12] LABS: Anion Gap 2 mmol/L (8-16); Blood Urea Nitrogen 12 mg/dL (7-17); Calcium 9.1 mg/dL (8.4-10.2); Carbon Dioxide 28 mmol/L (22-30); Chloride 105 mmol/L (98-107); Estimated CRCL calculation 27 ml/min; Estimated Glomerular Filt Rate 59; Glucose 76 mg/dL (65-110); Potassium 3.6 mmol/L (3.4-5.0); Sodium 135 mmol/L (137-145)
[2021-05-04] MEDS: CLOPIDOGREL BISULFATE 75 MG TABLET PO (08:07)
[2021-05-04] MEDS: FERROUS SULFATE DRIED 142 MG TABCR 45 MG PO (08:07)
[2021-05-04] MEDS: ASPIRIN 81 MG ENTERIC TABLET PO (08:08)
[2021-05-04] MEDS: CHOLECALCIFEROL 1,000 UNITS TABLET 2000 UNITS PO (08:08)
[2021-05-04] MEDS: FOLIC ACID 1 MG TABLET PO (08:08)
[2021-05-04] MEDS: MAGNESIUM OXIDE 400 MG TABLET PO (08:08)
[2021-05-04] MEDS: SERTRALINE HCL 25 MG TABLET PO (08:08)
[2021-05-04] MEDS: MULTIVITAMINS THERAPEUTIC TAB (*BKC) 1 TABLET PO (08:08)
[2021-05-04] MEDS: OLOPATADINE 0.1% OPHTH SOLN 5 ML BTL 1 DROP EACH EYE (08:08)
--- NOTE | 2021-05-04 09:54 | PM.IMPN ---
Progress Note: A&P Assessment and Plan (1) Urinary tract infection: Qualifiers: Hematuria presence: without hematuria Urinary tract infection type: acute cystitis Qualified Code(s): N30.00 - Acute cystitis without hematuria Code(s): N39.0 - Urinary tract infection, site not specified Status: Acute Assessment and Plan: Urine culture with growth of ESBL E. coli Patient with history of antibiotic resistant UTI Continue IV Ertapenem 1 g q24h. Dose #2 today She will require 10 days of IV antibiotic therapy. Plan for midline placement today preliminary blood cultures negative to date (2) HTN (hypertension): Code(s): I10 - Essential (primary) hypertension Status: Chronic Assessment and Plan: blood pressures reviewed and have been well controlled does not appear to be on any antihypertensive agents continue to monitor blood pressure trends (3) Asthma: Code(s): J45.909 - Unspecified asthma, uncomplicated Status: Chronic Assessment and Plan: No acute issues continue home inhalers albuterol nebs q6h prn (4) Anxiety: Code(s): F41.9 - Anxiety disorder, unspecified Status: Chronic Assessment and Plan: No acute issues. Continue sertraline Subjective Date/time seen: 05/04/21 09:54 Interval history: Date of service: 05/04/2021 Gracia Goodson is an 86-year-old female with a history of hypertension, hyperlipidemia, anxiety, and asthma who is seen in follow-up for urinary tract infection. she is feeling okay today. She does state that her stomach is rumbling and therefore she did not eat much of her breakfast. She denies nausea or vomiting. She endorses urinary incontinence and wears depends. Denies suprapubic pain, flank pain, or back pain. She is wheelchair dependent. She denies shortness of breath. she does endorse a mild, intermittent cough for which she would like to taking breathing treatment. she states that she [facility] nebs [facility] her [facility] and would like this resume. She denies fevers or chills. No dizziness or lightheadedness. Denies chest pain. Review of Systems Review of Systems: All systems reviewed & are unremarkable except as noted in HPI and below Objective Data Vital Signs Vital Signs: Vital Signs - 24 hr 05/03/21 15:01 05/03/21 19:07 05/04/21 03:27 Temperature 98.2 F 97.8 F 98.8 F Pulse Rate 79 81 87 Respiratory Rate 16 17 18 Blood Pressure 117/66 118/65 132/76 Pulse Oximetry 95 94 93 Intake/Output Intake/Output: Intake & Output 05/01/21 05/02/21 05/03/21 05/04/21 23:59 23:59 23:59 23:59 Intake Total 250 510 940 310 Output Total 100 Balance 250 410 940 310 Meds/Results Medications: Active Medications Generic Name Dose Route Start Last Admin Trade Name Freq PRN Reason Stop Dose Admin Albuterol 2 puff 05/01/21 23:29 Albuterol Sulfate (*Sp) Aerosol 1 Puff INHALATION Q6HRT PRN Shortness Of Breath Aspirin 81 mg 05/02/21 09:00 05/04/21 08:08 Aspirin 81 Mg Enteric Tablet PO 81 mg DAILY FRANCK Administration Atorvastatin Calcium 40 mg 05/02/21 00:20 05/03/21 20:37 Atorvastatin 40 Mg Tablet PO 40 mg HS FRANCK Administration Bisacodyl 5 mg 05/01/21 23:49 Bisacodyl 5 Mg Tablet Ec PO HS PRN Constipation Clopidogrel Bisulfate 75 mg 05/02/21 09:00 05/04/21 08:07 Clopidogrel Bisulfate 75 Mg Tablet PO 75 mg DAILY FRANCK Administration Ferrous Sulfate 45 mg 05/02/21 08:00 05/04/21 08:07 Ferrous Sulfate Dried 142 Mg Tabcr PO 45 mg DAILY@0800 FRANCK Administration Folic Acid 1 mg 05/02/21 09:00 05/04/21 08:08 Folic Acid 1 Mg Tablet PO 1 mg DAILY FRANCK Administration Ertapenem 0.5 gm/ Sodium 50 mls @ 100 mls/hr 05/03/21 12:00 05/03/21 13:19 Chloride IVPB Infused Q24H FRANCK Infusion Magnesium Oxide 400 mg 05/02/21 09:00 05/04/21 08:08 Magnesium Oxide 400 Mg Tablet PO
[2021-05-04 11:00] VITALS: BMI 15.7
[2021-05-04 11:17] VITALS: PULSE 90; RESP 20
[2021-05-04] MEDS: UMECLIDINIUM BROMIDE 62.5 MCG ELLIPTA 1 PUFF INHALATION (11:17)
--- NOTE | 2021-05-04 11:45 | P.CDI_ITS ---
CDI Query Clarification Request -BMI 15.7 -Nutrition Assessment completed by superintendent oil field drilling. Pt is 75% of ideal body weight, with BMI 15.7 classification is underweight. Inadequate oral intake documented and dietary supplements recommended.Ensure compact BID was ordered. -Pt is thin has been documented by provider. Please clarify if there is possibly a more definitive diagnosis for above findings: * Underweight * Malnutrition * No additional diagnosis * Other * Unable to determine
--- NOTE | 2021-05-04 11:45 | WPDCDIQUERY2 ---
CDI Query Clarification Request -BMI 15.7 -Nutrition Assessment completed by pneumatic press hand. Pt is 75% of ideal body weight, with BMI 15.7 classification is underweight. Inadequate oral intake documented and dietary supplements recommended.Ensure compact BID was ordered. -Pt is thin has been documented by provider. Please clarify if there is possibly a more definitive diagnosis for above findings: Underweight Malnutrition No additional diagnosis Other Unable to determine
[2021-05-04] MEDS: ERTAPENEM SODIUM 0.5 GM in SODIUM CHLORIDE 0.9% IV 50 ML IVPB (11:54)
[2021-05-04 13:46] VITALS: BP 135/74; PULSE 81; RESP 14; TEMP 36.3; O2SAT 93
--- NOTE | 2021-05-04 14:38 | PM.DS ---
DS: Admitting Diagnosis Discharge Date 05/04/2021 Admitting Diagnosis UTI DS: Discharge Diagnosis Discharge Diagnosis (1) Urinary tract infection: Qualifiers: Hematuria presence: without hematuria Urinary tract infection type: acute cystitis Qualified Code(s): N30.00 - Acute cystitis without hematuria Code(s): N39.0 - Urinary tract infection, site not specified Status: Acute Assessment and Plan: Urine culture with growth of 10-49k ESBL E. coli Patient with history of antibiotic resistant UTI therefore was sent to hospital for further treatment from assisted living facility Given low colony count, felt to be contaminant. Patient is asymptomatic, afebrile, no leukocytosis No further treatment required Repeat urine culture if patient were to develop symptoms of UTI (2) HTN (hypertension): Code(s): I10 - Essential (primary) hypertension Status: Chronic Assessment and Plan: Blood pressures reviewed and were well controlled does not appear to be on any antihypertensive agents (3) Asthma: Code(s): J45.909 - Unspecified asthma, uncomplicated Status: Chronic Assessment and Plan: No acute issues continue home inhalers (4) Anxiety: Code(s): F41.9 - Anxiety disorder, unspecified Status: Chronic Assessment and Plan: No acute issues. Continue sertraline (5) Positive blood culture: Code(s): R78.81 - Bacteremia Status: Acute Assessment and Plan: 1 of 2 blood cultures with growth of coag-negative Staphylococcus >48 hours after collection [place] to be contaminant No treatment required Will monitor final blood cultures DS: Summary Hospital Course Hospital Course: Date of admission: 05/01/2021 Date of discharge: 05/04/2021 Gracia Goodson is an 86-year-old female with a history of hypertension, hyperlipidemia, anxiety, and asthma who presented to the emergency department on 05/01/2021 from her [facility] care facility after a positive urine culture. She has a history of antibiotic resistant UTIs and following completion of urine culture, the [facility] practitioner instructed the patient be sent to the ED for further treatment. She was admitted to the hospitalist service for further evaluation and management. Please see above for further details. Review urine culture with low colony count felt to be consistent with contaminant. Patient was asymptomatic. No fevers or leukocytosis. No treatment felt to be required. She was at her usual state of health and was determined to no longer require inpatient care. Discussed with the patient's daughter via phone and provide updates on course of hospitalization as well as discussed discharge instructions and worrisome signs and symptoms for which to return. Patient was discharged in hemodynamically stable condition on 05/04/2021 Status at Discharge Overall status at discharge: patient is back to baseline Time Spent with Patient Time attestation: Total time spent providing and/or coordinating discharge services: 45 minutes Time spent: Greater than 30 minutes Specific discharge activities: Reviewing chart and lab results, updating family, speaking with patient's nursing facility Exam Narrative: Ms. Goodson is a thin, well-appearing 86-year-old female who is sitting up in bed. she appears comfortable and is in NARD. Neuro: awake, alert and oriented x4, speech clear, no focal neuro deficits noted HEENMT: normocephalic, atraumatic, EOMI, sclerae anicteric Neck: supple, no lymphadenopathy Respiratory: clear to auscultation bilaterally, nonlabored breathing Cardio: regular rate, regular rhythm with S1-S2 Abdomen: nondistended, normoactive bowel sounds, soft, nontender to palpation Extremities: no edema, erythema, or tenderness to palpation, DP pulses 2+ bilaterally Skin: no rashes or lesions, warm and dry Psych: appropriate mood and affect, judgment and
[2021-05-04 15:52] LABS: EDCOVIDSCREEN Negative (Negative)
== END 2021-05-04 17:21 | DRG 690 ==
LOC: ANHED 17:23 → ANH2MED 05-04 06:39 → ANH3MEDSUR 05-05 14:18
PROVIDERS: Nurse Practitioner; Nurse Practitioner Adult Health; Admitting Provider Hospitalist; Emergency Provider Emergency Medicine; PCP Nurse Practitioner Family; Visit Provider Physician Assistant
DX: N30.00 Acute cystitis without hematuria (principal); R78.81 Bacteremia; Z16.12 Extended spectrum beta lactamase (ESBL) resistance; B96.20 Unspecified Escherichia coli [E. coli] as the cause of diseases classified elsewhere; B95.7 Other staphylococcus as the cause of diseases classified elsewhere; Z20.822 Contact with and (suspected) exposure to COVID-19; I10 Essential (primary) hypertension; J45.909 Unspecified asthma, uncomplicated; F41.9 Anxiety disorder, unspecified; E78.5 Hyperlipidemia, unspecified; M19.90 Unspecified osteoarthritis, unspecified site; Z96.641 Presence of right artificial hip joint; Z79.82 Long term (current) use of aspirin; Z79.899 Other long term (current) drug therapy; Z90.49 Acquired absence of other specified parts of digestive tract; Z98.890 Other specified postprocedural states
CPT/HCPCS: 36415; 51701; 80048; 80053; 81001; 83605; 83615; 83690; 83735; 84443; 85025; 85027; 86140; 87040; 87077; 87086; 87088; 87147; 87181; 87186; 87426; 94640; 96365; 99285; A9270; C9803; G0378; J1335; J3370

== ENCOUNTER 2023-01-04 14:30 | Outpatient (CLI) | payer OTHER, MEDICARE, SELFPAY ==
--- NOTE | ~2023-01-04 | XR_ITS ---
XR chest 2V DATE: 01/04/2023 14:48 INDICATION: Cough. Coarse lung sounds. TECHNIQUE: 2 views COMPARISON: None FINDINGS: There is bilateral hyperinflation with relative flattening the diaphragm, suggesting COPD; the elderly chest can simulate this appearance. Clinical correlation is advised. Normal heart size. There is extensive thoracic and abdominal aortic calcification. No hilar or mediastinal enlargement. No pulmonary consolidation, significant pleural effusion or pulm onary vascular congestion or pneumothorax is detected. There is diffuse osteopenia. There is gibbus at the mid to lower thoracic spine due to to contiguous vertebral body fractures, probably T8 and T9 or T9 and T10. Old healed right rib fracture deformities . Possible faceted calcified gallstones overlying the right upper quadrant of the abdomen. IMPRESSION: Bilateral hyperinflation which may be due to COPD or senile chest Otherwise no active cardiac pulmonary disease Extensive thoracic and abdominal aortic calcification Osteopenia 2 contiguous prominent fracture deformities of the lower thoracic spine Reviewed, dictated and finalized at location L.
== END 2023-01-04 14:31 | disposition home or self-care (01) ==
LOC: CHSIMG 14:35
PROVIDERS: PCP Family Medicine; Visit Provider Family Medicine
DX: R05.9 Cough, unspecified (principal); R91.8 Other nonspecific abnormal finding of lung field; M85.89 Other specified disorders of bone density and structure, multiple sites; I70.0 Atherosclerosis of aorta; M53.84 Other specified dorsopathies, thoracic region
CPT/HCPCS: 71046